=== PATIENT | male | born 1950 | race Two or more races ===

== ENCOUNTER 2020-05-31 12:09 | Inpatient (IN) | payer MEDICARE, MEDICAID ==
[~2020-05-31] VITALS: Ht 160 cm; Wt 82.0 kg
[2020-05-31] MEDS ORDERED: SODIUM CHLORIDE 0.9% 1,000 ML IV ONE ×2 (14:00→17:15)
[2020-05-31 14:57] LABS: Basophils # (auto) 0.1 10 ^3/uL (0-0.2); Basophils % (auto) 0.7 % (0.0-2.0); Eosinophils # (auto) 0.1 10 ^3/uL (0-0.8); Eosinophils % (auto) 0.7 % (0.0-7.0); Hematocrit 36.1 % (41.0-53.0); Hemoglobin 11.7 g/dL (13.5-17.5); Lymphocytes # (auto) 1.2 10 ^3/uL (0.4-5.4); Lymphocytes % (auto) 12.7 % (10.0-50.0); Mean Corpuscular Hemoglobin 31.1 pg (28.0-32.0); Mean Corpuscular Hgb Conc. 32.3 g/dL (32.0-36.0); Mean Corpuscular Volume 96.2 fL (80.0-100.0); Monocytes # (auto) 0.8 10 ^3/uL (0-1.3); Monocytes % (auto) 8.3 % (0.0-12.0); Neutrophils # (auto) 7.4 10 ^3/uL (1.6-8.6); Neutrophils % (auto) 77.6 % (37.0-80.0); Nucleated Red Blood Cells % 0.1 %; Platelet Count (auto) 396 10^3/uL (140-450); Red Blood Cells 3.75 10^6/uL (4.5-5.90); Red Cell Distribution Width 13.4 % (11.8-14.3); White Blood Cell 9.6 10^3/uL (4.4-10.8)
[2020-05-31 15:14] LABS: Alanine Aminotransferase 16 U/L (16-61); Albumin 3.1 g/dL (3.4-5.0); Anion Gap 6 (5-15); Blood Urea Nitrogen 20 mg/dL (7-18); Calcium 8.5 mg/dL (8.5-10.1); Carbon Dioxide 23 mmol/L (21-32); Chloride 110 mmol/L (98-107); Glucose 83 mg/dL (74-106); Potassium 4.1 mmol/L (3.5-5.1); Sodium 139 mmol/L (136-145)
[2020-05-31 15:22] LABS: Alkaline Phosphatase 75 U/L (45-117); Aspartate Aminotransferase 8 U/L (15-37); Bilirubin, Total 0.4 mg/dL (0.2-1.0); GFR African American 112 mL/min; GFR Non-African American 92 mL/min; Total Protein 7.1 g/dL (6.4-8.2)
[2020-05-31 15:26] LABS: Urine Bacteria NONE SEEN /hpf (None Seen); Urine Blood 2+ /uL (Negative); Urine Mucus FEW (None Seen); Urine Specific Gravity 1.021 (1.001-1.035); Urine WBC 11 /hpf (0 - 3)
[2020-05-31] MEDS ORDERED: VANCOMYCIN 1GM/250ML 250 ML IV ONE (17:15)
[2020-05-31] MEDS ORDERED: metroNIDAZOLE 500MG/100ML 100 ML IV ONE (17:15)
[2020-05-31] MEDS ORDERED: NITROGLYCERIN 0.4 MG SL TAB SL PRN (17:15)
[2020-05-31] MEDS ORDERED: MORPHINE SULF INJ 2 MG/ML SYRINGE 1ML IV PRN (17:15)
[2020-05-31 21:30] VITALS: BP 115/63
--- NOTE | 2020-05-31 22:30 | NUR ---
PATIENT BROUGHT TO UNIT VIA WHEELCHAIR FROM ER PATIENT AOX4, HAS ALL BELONGINGS WITH HIM AND A ALVARADO. NO COMPLAINTS OF PAIN OR SOB. NO S/S OR DISTRESS. YOHANA BAIRD TRANSLATED TO ASK PATIENT ABOUT PAIN AND COMFORT. PATIENT IS LAYING SUPINE IN BED W/ HOB AT 30 DEGREES, BED LOCKED IN LOWEST POSITION AND CALL LIGHT WITHIN REACH. WILL CONTINUE TO MONITOR PATIENT.
[2020-05-31] MEDS: PIPERACILLIN-TAZOB 3.375GM 100 ML IV SCH (22:34)
[2020-06-01] MEDS: PIPERACILLIN-TAZOB 3.375GM 100 ML IV SCH ×5 (00:14→23:11)
--- NOTE | 2020-06-01 00:45 | NUR ---
PATIENT COMPLAINS OF PAIN IN BLADDER AREA PATIENT WAS GIVEN PAIN MEDICATION PRESCRIBED. WILL CONTINUE TO MONITOR PAIN LEVEL.
[2020-06-01] MEDS: HYDROcodone-ACET 10/325MG TAB PO PRN (00:47)
[2020-06-01] MEDS ORDERED: ENAL2.5T7 PO (00:59)
[2020-06-01] MEDS ORDERED: CIPR500T4 PO (01:01)
[2020-06-01] MEDS ORDERED: TAMS1CAP25 PO (01:19)
[2020-06-01] MEDS ORDERED: AMLO5TAB15 PO (01:19)
[2020-06-01] MEDS ORDERED: ENAL20TA93 PO (01:19)
[2020-06-01] MEDS ORDERED: PHEN-1143 PO (01:19)
[2020-06-01 05:00] VITALS: BP 104/56
[2020-06-01 05:55] LABS: Basophils # (auto) 0 10 ^3/uL (0-0.2); Basophils % (auto) 0.6 % (0.0-2.0); Eosinophils # (auto) 0.2 10 ^3/uL (0-0.8); Hematocrit 35.4 % (41.0-53.0); Hemoglobin 11.9 g/dL (13.5-17.5); Lymphocytes # (auto) 1.2 10 ^3/uL (0.4-5.4); Lymphocytes % (auto) 15.2 % (10.0-50.0); Mean Corpuscular Hemoglobin 32.1 pg (28.0-32.0); Mean Corpuscular Hgb Conc. 33.5 g/dL (32.0-36.0); Mean Corpuscular Volume 95.6 fL (80.0-100.0); Monocytes # (auto) 0.6 10 ^3/uL (0-1.3); Monocytes % (auto) 7.8 % (0.0-12.0); Neutrophils % (auto) 74.4 % (37.0-80.0); Platelet Count (auto) 396 10^3/uL (140-450); Red Cell Distribution Width 13.4 % (11.8-14.3)
[2020-06-01 06:14] LABS: Potassium 3.8 mmol/L (3.5-5.1)
--- NOTE | 2020-06-01 07:00 | NUR ---
ENDORSED PATIENT CARE TO MORNING SHIFT RN.
[2020-06-01] MEDS: SODIUM CHLORIDE 0.9% 1,000 ML IV SCH ×2 (07:31→21:30)
[2020-06-01 09:02] VITALS: BP 113/64
[2020-06-01] MEDS ORDERED: IOTHALAMATE MEGLUMINE INJ 250ML BOT UR ONE (09:08)
[2020-06-01] MEDS: AZITHROMYCIN 500MG/ 250ML 250 ML IV SCH (12:27)
[2020-06-01 13:00] VITALS: BP 110/59
[2020-06-01 17:48] VITALS: BP 111/63
[2020-06-01 22:00] VITALS: BP 122/67
[2020-06-02] MEDS: HYDROcodone-ACET 10/325MG TAB PO PRN ×3 (01:11→22:45)
[2020-06-02 05:00] VITALS: BP 113/52
[2020-06-02 05:54] LABS: Basophils # (auto) 0 10 ^3/uL (0-0.2); Basophils % (auto) 0.4 % (0.0-2.0); Eosinophils # (auto) 0.1 10 ^3/uL (0-0.8); Eosinophils % (auto) 1.6 % (0.0-7.0); Hematocrit 35.8 % (41.0-53.0); Lymphocytes # (auto) 1.3 10 ^3/uL (0.4-5.4); Lymphocytes % (auto) 14.4 % (10.0-50.0); Mean Corpuscular Hgb Conc. 33.5 g/dL (32.0-36.0); Mean Corpuscular Volume 95.5 fL (80.0-100.0); Monocytes # (auto) 0.8 10 ^3/uL (0-1.3); Monocytes % (auto) 8.8 % (0.0-12.0); Neutrophils # (auto) 6.5 10 ^3/uL (1.6-8.6); Neutrophils % (auto) 74.8 % (37.0-80.0); Nucleated Red Blood Cells % 0.1 %; Platelet Count (auto) 428 10^3/uL (140-450); Red Blood Cells 3.74 10^6/uL (4.5-5.90); Red Cell Distribution Width 13.4 % (11.8-14.3); White Blood Cell 8.7 10^3/uL (4.4-10.8)
[2020-06-02 06:07] LABS: Partial Thromboplastin Time 29.5 sec (23.64-32.05)
[2020-06-02 06:09] LABS: Calcium 8.4 mg/dL (8.5-10.1); Potassium 3.9 mmol/L (3.5-5.1)
[2020-06-02 06:13] LABS: BUN/Creatinine Ratio 18.6
[2020-06-02] MEDS: PIPERACILLIN-TAZOB 3.375GM 100 ML IV SCH ×4 (06:51→17:29)
[2020-06-02] MEDS: AZITHROMYCIN 500MG/ 250ML 250 ML IV SCH (09:06)
[2020-06-02] MEDS: SODIUM CHLORIDE 0.9% 1,000 ML IV SCH ×2 (09:07→17:30)
[2020-06-02] MEDS ORDERED: ceFAZolin 1GM/50ML 50 ML IV ONE (09:58)
[2020-06-02] MEDS ORDERED: SUCCINYLCHOLINE CHLORIDE 20 MG/ML 10ML VIAL IV ONE (10:16)
[2020-06-02] MEDS ORDERED: LIDOCAINE 1% (LOCAL ANESTH.) PF 5ml SDV ONE (10:16)
[2020-06-02] MEDS ORDERED: MIDAZOLAM HCL 1MG/1ML-2 ML VIAL ONE (10:22)
[2020-06-02] MEDS ORDERED: METOCLOPRAMIDE HCL 5MG/ml INJ 2ml VIAL ONE (10:25)
[2020-06-02] MEDS ORDERED: ETOMIDATE (2MG/ML) 20ML VIAL IV ONE (10:25)
[2020-06-02] MEDS ORDERED: ROCURONIUM 10MG/ML 10ML VIAL IV ONE (10:29)
[2020-06-02] MEDS ORDERED: fentaNYL CITRATE 100 MCG/2 ML VL ONE (10:36)
[2020-06-02] MEDS ORDERED: HYDROmorphone HCL 2 MG/ML VL IV PRN ×2 (10:45)
[2020-06-02] MEDS ORDERED: ONDANSETRON HCL 4 MG/2 ML VIAL IV PRN (10:45)
[2020-06-02] MEDS ORDERED: GLYCOPYRROLATE 0.2 MG/ML 1ML VIAL ONE (11:06)
[2020-06-02] MEDS ORDERED: NEOSTIGMINE 1 MG/ML INJ (10mg/10ML VIAL) ONE (11:06)
--- NOTE | 2020-06-02 13:47 | NUR ---
ss consult Per consult patient wants advanced directive information. Patient has been provided with advanced directive. Addendum: 06/02/20 at 1352 by Nataliia Scott Amended: Links added.
--- NOTE | 2020-06-02 14:00 | NUR ---
PAGED DR ZAPATA FOR ORDERS REGARDING CONTINUOUS BLADDER IRRIGATION AND PARAMETERS FOR DISCONTINUATION.
[2020-06-02 17:00] VITALS: BP 99/49
--- NOTE | 2020-06-02 19:00 | NUR ---
NO COMMUNICATION RECEIVED FROM DR ZAPATA REGARDING CONTINUOUS BLADDER IRRIGATION PARAMETERS. PASSED ON TO RELIEVING NURSE.
[2020-06-02 22:00] VITALS: BP 115/60
[2020-06-03] MEDS: PIPERACILLIN-TAZOB 3.375GM 100 ML IV SCH ×3 (01:09→12:00)
--- NOTE | 2020-06-03 01:29 | NUR ---
PT ABLE TO REPOSITION SELF W/O ASSISTANCE. DENIES PAIN AT THIS TIME.
[2020-06-03 05:17] LABS: Basophils # (auto) 0.1 10 ^3/uL (0-0.2); Basophils % (auto) 0.6 % (0.0-2.0); Eosinophils # (auto) 0.3 10 ^3/uL (0-0.8); Eosinophils % (auto) 2.8 % (0.0-7.0); Hematocrit 35.7 % (41.0-53.0); Hemoglobin 11.8 g/dL (13.5-17.5); Lymphocytes # (auto) 1.4 10 ^3/uL (0.4-5.4); Lymphocytes % (auto) 15.5 % (10.0-50.0); Mean Corpuscular Hemoglobin 31.5 pg (28.0-32.0); Mean Corpuscular Hgb Conc. 32.9 g/dL (32.0-36.0); Mean Corpuscular Volume 95.6 fL (80.0-100.0); Monocytes # (auto) 0.7 10 ^3/uL (0-1.3); Monocytes % (auto) 7.9 % (0.0-12.0); Neutrophils # (auto) 6.6 10 ^3/uL (1.6-8.6); Neutrophils % (auto) 73.2 % (37.0-80.0); Platelet Count (auto) 428 10^3/uL (140-450); Red Blood Cells 3.73 10^6/uL (4.5-5.90); Red Cell Distribution Width 13.3 % (11.8-14.3); White Blood Cell 9.1 10^3/uL (4.4-10.8)
[2020-06-03 05:38] LABS: Potassium 3.9 mmol/L (3.5-5.1)
[2020-06-03 05:47] LABS: BUN/Creatinine Ratio 20.8
[2020-06-03 08:00] VITALS: BP 112/59
[2020-06-03 09:00] VITALS: BP 112/59
[2020-06-03] MEDS: AZITHROMYCIN 500MG/ 250ML 250 ML IV SCH (09:23)
--- NOTE | 2020-06-03 10:00 | NUR ---
PAGED DR ZAPATA IN REGARDS TO PARAMETERS TO DISCONTINUE CONTINUOUS BLADDER IRRIGATION AND IN REGARDS TO DISCHARGE CLEARANCE
[2020-06-03] MEDS ORDERED: SODIUM CHLORIDE 0.9% 1,000 ML IV SCH (12:15)
[2020-06-03 13:00] VITALS: BP 123/65
--- NOTE | 2020-06-03 15:39 | NUR ---
RECEIVED VERBAL CLEARANCE FOR DISCHARGE FROM DR ZAPATA OF SURGERY
[2020-06-03 16:55] VITALS: BP 128/52
--- NOTE | 2020-06-03 17:23 | NUR ---
PATIENT DISCHARGING HOME WITH FAMILY AND ALVARADO CATHETER WITH LEG BAG. PATIENT NON-TELEMETRY. ALL IV ACCESS DISCONTINUED. ALL DISCHARGE INSTRUCTIONS GIVEN. ALL DISCHARGE PAPERWORK SIGNED.
== END 2020-06-03 17:15 | disposition home or self-care (01) | DRG 713 ==
LOC: ER 12:09 → OVERFLOW 12:10 → WEST WING 22:51
PROVIDERS: ADMIT Internal Medicine; ATTEND Internal Medicine
PROC: 0TJB8ZZ Inspection of Bladder, Via Natural or Artificial Opening Endoscopic (ICD-10-PCS; 2020-06-02)
PROC: 0VT08ZZ Resection of Prostate, Via Natural or Artificial Opening Endoscopic (ICD-10-PCS; principal; 2020-06-02 10:21)
DX: N40.1 Benign prostatic hyperplasia with lower urinary tract symptoms (principal); K57.32 Diverticulitis of large intestine without perforation or abscess without bleeding; N39.0 Urinary tract infection, site not specified; K63.2 Fistula of intestine; R33.8 Other retention of urine; Z11.59 Encounter for screening for other viral diseases
CPT/HCPCS: 36415; 71045; 74176; 74430; 80048; 80053; 81001; 83605; 84484; 85025; 85610; 85730; 87040; 87086; 93005; 96361; 96365; 96366; 96367; G0378; J0330; J0690; J2250; J2543; J3490

== ENCOUNTER → 2020-09-16 | Outpatient (CLI) | payer OTHER, MEDICAID ==
[~2020-09-16] MED LIST: AMLO5TAB15 PO; CIPR500T4 PO; ENAL20TA93 PO; PHEN-1143 PO; TAMS1CAP25 PO
== END | disposition home or self-care (01) ==
LOC: LAB 09:21
PROVIDERS: ATTEND Urology
DX: N20.0 Calculus of kidney (principal); N39.0 Urinary tract infection, site not specified
CPT/HCPCS: 82360; 87086

== ENCOUNTER 2020-09-21 20:16 | Inpatient (IN) | payer OTHER, MEDICAID ==
[~2020-09-21] VITALS: Ht 160 cm; Wt 77.6 kg
[~2020-09-21 20:16] MED LIST changes: +AMLO-489 PO; -AMLO5TAB15 PO
[2020-09-21 23:06] LABS: Basophils # (auto) 0.1 10 ^3/uL (0-0.2); Eosinophils # (auto) 0.3 10 ^3/uL (0-0.8); Lymphocytes # (auto) 1.5 10 ^3/uL (0.4-5.4); Monocytes # (auto) 0.8 10 ^3/uL (0-1.3); Neutrophils # (auto) 3.2 10 ^3/uL (1.6-8.6); White Blood Cell 5.8 10^3/uL (4.4-10.8)
[2020-09-21 23:08] LABS: Basophils % (auto) 1.1 % (0.0-2.0); Eosinophils % (auto) 4.7 % (0.0-7.0); Hematocrit 33.1 % (41.0-53.0); Hemoglobin 11.3 g/dL (13.5-17.5); Lymphocytes % (auto) 25.7 % (10.0-50.0); Mean Corpuscular Hemoglobin 30.4 pg (28.0-32.0); Mean Corpuscular Hgb Conc. 34.1 g/dL (32.0-36.0); Mean Corpuscular Volume 89.1 fL (80.0-100.0); Monocytes % (auto) 14.2 % (0.0-12.0); Neutrophils % (auto) 54.3 % (37.0-80.0); Platelet Count (auto) 485 10^3/uL (140-450); Red Blood Cells 3.71 10^6/uL (4.5-5.90); Red Cell Distribution Width 14.2 % (11.8-14.3)
[2020-09-21 23:32] LABS: Albumin 2.9 g/dL (3.4-5.0); BUN/Creatinine Ratio 10.3; Bilirubin, Total 0.2 mg/dL (0.2-1.0); Calcium 8.2 mg/dL (8.5-10.1); Total Protein 6.6 g/dL (6.4-8.2)
[2020-09-22] MEDS ORDERED: metroNIDAZOLE 500MG/100ML 100 ML IV ONE (02:00)
[2020-09-22] MEDS ORDERED: CIPROFLOXACIN 400MG/200ML 200 ML IV ONE (02:00)
[2020-09-22] MEDS ORDERED: SODIUM CHLORIDE 0.9% 500 ML IV ONE (02:00)
[2020-09-22 03:37] LABS: Urine Bacteria MANY /hpf (None Seen); Urine Blood 2+ /uL (Negative); Urine Specific Gravity 1.015 (1.001-1.035); Urine WBC 1360 /hpf (0 - 3); Urine WBC Clumps PRESENT /hpf (None Seen)
[2020-09-22] MEDS ORDERED: NITROGLYCERIN 0.4 MG SL TAB SL PRN (05:45)
[2020-09-22] MEDS ORDERED: MORPHINE SULF INJ 2 MG/ML SYRINGE 1ML IV PRN (05:45)
[2020-09-22] MEDS ORDERED: ONDANSETRON HCL 4 MG/2 ML VIAL IV PRN (05:45)
[2020-09-22] MEDS ORDERED: SODIUM CHLORIDE 0.9% 1,000 ML IV ONE (05:45)
[2020-09-22] MEDS: metroNIDAZOLE 500MG/100ML 100 ML IV SCH ×3 (06:25→20:49)
[2020-09-22] MEDS: PIPERACILLIN-TAZOB 3.375GM 100 ML IV SCH ×3 (07:30→23:00)
[2020-09-22 07:42] LABS: Basophils # (auto) 0 10 ^3/uL (0-0.2); Eosinophils # (auto) 0.2 10 ^3/uL (0-0.8); Eosinophils % (auto) 6.7 % (0.0-7.0); Hematocrit 32.8 % (41.0-53.0); Hemoglobin 10.9 g/dL (13.5-17.5); Lymphocytes % (auto) 28.5 % (10.0-50.0); Mean Corpuscular Hemoglobin 30.2 pg (28.0-32.0); Mean Corpuscular Hgb Conc. 33.3 g/dL (32.0-36.0); Mean Corpuscular Volume 90.7 fL (80.0-100.0); Monocytes # (auto) 0.5 10 ^3/uL (0-1.3); Monocytes % (auto) 14.3 % (0.0-12.0); Neutrophils # (auto) 1.8 10 ^3/uL (1.6-8.6); Neutrophils % (auto) 49.5 % (37.0-80.0); Nucleated Red Blood Cells % 0.1 %; Platelet Count (auto) 442 10^3/uL (140-450); Red Blood Cells 3.62 10^6/uL (4.5-5.90); Red Cell Distribution Width 14.4 % (11.8-14.3); White Blood Cell 3.6 10^3/uL (4.4-10.8)
[2020-09-22 08:09] LABS: Potassium 3.8 mmol/L (3.5-5.1)
[2020-09-22 08:12] LABS: INR 1.03 (0.9-1.15)
[2020-09-22 08:17] LABS: Albumin 2.6 g/dL (3.4-5.0); BUN/Creatinine Ratio 11.1; Bilirubin, Total 0.2 mg/dL (0.2-1.0); Calcium 8.1 mg/dL (8.5-10.1); Total Protein 5.9 g/dL (6.4-8.2)
[2020-09-22] MEDS: amLODIPine BESYLATE 5 MG TAB PO SCH (09:28)
[2020-09-22] MEDS: TAMSULOSIN HYDROCHLORIDE 0.4 MG CAP PO SCH (09:28)
[2020-09-22] MEDS ORDERED: ACETAMINOPHEN 325 MG TAB PO PRN (10:30)
[2020-09-22] MEDS ORDERED: LIDOCAINE 2% JELLY 11ml (GLYDO) UR ONE (11:00)
[2020-09-22] MEDS ORDERED: TPN PER PHARMACY 0 ML IV SCH (13:15)
[2020-09-22 13:24] LABS: Magnesium 1.8 mg/dL (1.6-2.6); Phosphorus 2.9 mg/dL (2.5-4.90)
[2020-09-22 13:29] LABS: Pre Albumin 12.1 mg/dL (20.0-40.0)
[2020-09-22] MEDS ORDERED: TRAM50TA2 PO (15:59)
[2020-09-22] MEDS ORDERED: INFLUENZA QUAD 2020-2021 0.5 ML SYRG IM ONE (16:00)
[2020-09-22] MEDS ORDERED: LIDOCAINE 2% JELLY 11ml (GLYDO) ONE (16:57)
[2020-09-22 17:00] VITALS: BP 137/61
[2020-09-22] MEDS ORDERED: LIDOCAINE 1% (LOCAL ANESTH.) PF 5ml SDV ID ONE (18:00)
[2020-09-22] MEDS: MORPHINE SULF INJ 2 MG/ML SYRINGE 1ML IV PRN ×2 (18:02→22:12)
[2020-09-22] MEDS ORDERED: PPN PER PHARMACY IV NR ×11 (20:00)
[2020-09-22 22:00] VITALS: BP 162/75
[2020-09-22] MEDS: SODIUM CHLOR 0.9% PF (SALINE LOCK) 10ML VIAL/SYR IV SCH (22:12)
[2020-09-22] MEDS: HYDROmorphone HCL 2 MG/ML VL IV PRN (23:42)
[2020-09-22] MEDS: InsuLIN REG 1unit/0.01ml Soln (100units/ml) SC SCH (23:48)
[2020-09-22] MEDS: ACCU-CHEK COMFORT CURVE STRIP VI SCH (23:48)
[2020-09-23] MEDS ORDERED: DEXTROSE (50%) 50ML SYRG IV SCH
[2020-09-23] MEDS: HYDROmorphone HCL 2 MG/ML VL IV PRN ×5 (03:36→22:08)
[2020-09-23 05:00] VITALS: BP 153/72
[2020-09-23] MEDS: metroNIDAZOLE 500MG/100ML 100 ML IV SCH ×3 (05:09→21:25)
[2020-09-23] MEDS: InsuLIN REG 1unit/0.01ml Soln (100units/ml) SC SCH ×3 (06:00→16:42)
[2020-09-23] MEDS: PIPERACILLIN-TAZOB 3.375GM 100 ML IV SCH ×2 (06:54→16:41)
[2020-09-23] MEDS: ACCU-CHEK COMFORT CURVE STRIP VI SCH ×3 (07:04→16:42)
[2020-09-23 07:25] LABS: Albumin 2.7 g/dL (3.4-5.0); Calcium 8.4 mg/dL (8.5-10.1); Potassium 3.6 mmol/L (3.5-5.1)
[2020-09-23 07:29] LABS: BUN/Creatinine Ratio 9.2; Bilirubin, Total 0.2 mg/dL (0.2-1.0); Phosphorus 3.7 mg/dL (2.5-4.90); Total Protein 6.2 g/dL (6.4-8.2)
[2020-09-23] MEDS: amLODIPine BESYLATE 5 MG TAB PO SCH (08:44)
[2020-09-23] MEDS: TAMSULOSIN HYDROCHLORIDE 0.4 MG CAP PO SCH (08:46)
[2020-09-23] MEDS: SODIUM CHLOR 0.9% PF (SALINE LOCK) 10ML VIAL/SYR IV SCH ×2 (08:47→22:00)
[2020-09-23 09:00] VITALS: BP 145/73
[2020-09-23] MEDS ORDERED: IOTHALAMATE MEGLUMINE INJ 250ML BOT UR ONE ×2 (10:54)
[2020-09-23 13:00] VITALS: BP 125/62
[2020-09-23 17:00] VITALS: BP 145/72
[2020-09-23] MEDS ORDERED: TPN PER PHARMACY IV NR ×10 (20:00)
[2020-09-23] MEDS: DOCUSATE SOD 100 MG CAP PO SCH (22:04)
[2020-09-24] MEDS: PIPERACILLIN-TAZOB 3.375GM 100 ML IV SCH ×4 (00:01→23:42)
[2020-09-24] MEDS: InsuLIN REG 1unit/0.01ml Soln (100units/ml) SC SCH ×5 (00:10→23:43)
[2020-09-24] MEDS: ACCU-CHEK COMFORT CURVE STRIP VI SCH ×5 (00:11→23:43)
[2020-09-24] MEDS: HYDROmorphone HCL 2 MG/ML VL IV PRN ×6 (02:22→23:03)
[2020-09-24 04:00] VITALS: BP 122/79
[2020-09-24 05:00] VITALS: BP 154/77
[2020-09-24 05:15] LABS: Eosinophils # (auto) 0.1 10 ^3/uL (0-0.8); Eosinophils % (auto) 1.3 % (0.0-7.0); Lymphocytes # (auto) 1.3 10 ^3/uL (0.4-5.4); Red Cell Distribution Width 14.5 % (11.8-14.3)
[2020-09-24 05:17] LABS: Basophils # (auto) 0 10 ^3/uL (0-0.2); Basophils % (auto) 0.5 % (0.0-2.0); Hematocrit 34.3 % (41.0-53.0); Hemoglobin 11.3 g/dL (13.5-17.5); Lymphocytes % (auto) 13.7 % (10.0-50.0); Mean Corpuscular Hemoglobin 29.8 pg (28.0-32.0); Mean Corpuscular Hgb Conc. 32.9 g/dL (32.0-36.0); Mean Corpuscular Volume 90.6 fL (80.0-100.0); Monocytes # (auto) 0.8 10 ^3/uL (0-1.3); Monocytes % (auto) 7.9 % (0.0-12.0); Neutrophils # (auto) 7.6 10 ^3/uL (1.6-8.6); Neutrophils % (auto) 76.6 % (37.0-80.0); Platelet Count (auto) 488 10^3/uL (140-450); Red Blood Cells 3.78 10^6/uL (4.5-5.90); White Blood Cell 9.9 10^3/uL (4.4-10.8)
[2020-09-24] MEDS: metroNIDAZOLE 500MG/100ML 100 ML IV SCH ×3 (05:29→22:20)
[2020-09-24 05:39] LABS: Albumin 2.4 g/dL (3.4-5.0); BUN/Creatinine Ratio 15.2; Bilirubin, Total 0.2 mg/dL (0.2-1.0); Calcium 8.3 mg/dL (8.5-10.1); Magnesium 2.1 mg/dL (1.6-2.6); Phosphorus 3.4 mg/dL (2.5-4.90); Potassium 3.9 mmol/L (3.5-5.1); Total Protein 6.1 g/dL (6.4-8.2)
[2020-09-24] MEDS ORDERED: GOLYTELY 4L KIT PO ONE (07:00)
[2020-09-24 09:00] VITALS: BP 117/61
[2020-09-24] MEDS: DOCUSATE SOD 100 MG CAP PO SCH ×2 (10:16→23:42)
[2020-09-24] MEDS: TAMSULOSIN HYDROCHLORIDE 0.4 MG CAP PO SCH (10:17)
[2020-09-24] MEDS: amLODIPine BESYLATE 5 MG TAB PO SCH (10:17)
[2020-09-24] MEDS: SODIUM CHLOR 0.9% PF (SALINE LOCK) 10ML VIAL/SYR IV SCH ×2 (11:25→22:20)
[2020-09-24 13:00] VITALS: BP 139/65
[2020-09-24 16:12] VITALS: BP 138/69
[2020-09-24] MEDS ORDERED: TPN PER PHARMACY IV NR ×11 (20:00)
[2020-09-24 22:00] VITALS: BP 148/67
[2020-09-25] MEDS: HYDROmorphone HCL 2 MG/ML VL IV PRN ×5 (03:18→20:16)
[2020-09-25 05:00] VITALS: BP 139/65
[2020-09-25] MEDS: metroNIDAZOLE 500MG/100ML 100 ML IV SCH (05:15)
[2020-09-25] MEDS: InsuLIN REG 1unit/0.01ml Soln (100units/ml) SC SCH ×4 (05:36→23:02)
[2020-09-25] MEDS: ACCU-CHEK COMFORT CURVE STRIP VI SCH ×4 (05:36→23:02)
[2020-09-25] MEDS: PIPERACILLIN-TAZOB 3.375GM 100 ML IV SCH ×3 (06:33→21:05)
[2020-09-25 07:06] LABS: Albumin 2.5 g/dL (3.4-5.0); BUN/Creatinine Ratio 18.4; Bilirubin, Total 0.3 mg/dL (0.2-1.0); Calcium 8.3 mg/dL (8.5-10.1); Phosphorus 2.7 mg/dL (2.5-4.90); Potassium 3.8 mmol/L (3.5-5.1); Total Protein 6.2 g/dL (6.4-8.2)
[2020-09-25 08:00] VITALS: BP 117/61
[2020-09-25 08:16] VITALS: BP 157/66
[2020-09-25] MEDS: SODIUM CHLOR 0.9% PF (SALINE LOCK) 10ML VIAL/SYR IV SCH ×2 (10:12→21:03)
[2020-09-25] MEDS: DOCUSATE SOD 100 MG CAP PO SCH ×2 (10:12→21:03)
[2020-09-25] MEDS: amLODIPine BESYLATE 5 MG TAB PO SCH (10:13)
[2020-09-25] MEDS: TAMSULOSIN HYDROCHLORIDE 0.4 MG CAP PO SCH (10:13)
[2020-09-25 12:24] VITALS: BP 150/70
[2020-09-25 16:15] LABS: INR 1.07 (0.9-1.15)
[2020-09-25 17:00] VITALS: BP 141/68
[2020-09-25] MEDS ORDERED: TPN PER PHARMACY IV NR ×11 (20:00)
[2020-09-25 22:00] VITALS: BP 152/75
[2020-09-26] MEDS: HYDROmorphone HCL 2 MG/ML VL IV PRN ×4 (04:05→19:30)
[2020-09-26 05:00] VITALS: BP 141/66
[2020-09-26] MEDS: ACCU-CHEK COMFORT CURVE STRIP VI SCH ×3 (06:00→13:36)
[2020-09-26 06:34] LABS: Potassium 3.8 mmol/L (3.5-5.1)
[2020-09-26] MEDS: PIPERACILLIN-TAZOB 3.375GM 100 ML IV SCH ×2 (06:43→16:02)
[2020-09-26] MEDS: InsuLIN REG 1unit/0.01ml Soln (100units/ml) SC SCH ×3 (06:44→13:33)
[2020-09-26 06:59] LABS: Albumin 2.6 g/dL (3.4-5.0); BUN/Creatinine Ratio 23.3; Bilirubin, Total 0.2 mg/dL (0.2-1.0); Calcium 8.2 mg/dL (8.5-10.1); Phosphorus 3.1 mg/dL (2.5-4.90); Total Protein 6.4 g/dL (6.4-8.2)
[2020-09-26 09:00] VITALS: BP 193/84
[2020-09-26] MEDS: SODIUM CHLOR 0.9% PF (SALINE LOCK) 10ML VIAL/SYR IV SCH ×2 (09:00→22:00)
[2020-09-26] MEDS: amLODIPine BESYLATE 5 MG TAB PO SCH (10:00)
[2020-09-26] MEDS: TAMSULOSIN HYDROCHLORIDE 0.4 MG CAP PO SCH (10:00)
[2020-09-26] MEDS: DOCUSATE SOD 100 MG CAP PO SCH ×2 (10:00→22:00)
[2020-09-26] MEDS ORDERED: MIDAZOLAM HCL 1MG/1ML-2 ML VIAL ONE (10:03)
[2020-09-26] MEDS ORDERED: ONDANSETRON HCL 4 MG/2 ML VIAL ONE (10:03)
[2020-09-26] MEDS ORDERED: GLYCOPYRROLATE 0.2 MG/ML 1ML VIAL ONE ×2 (10:03→11:02)
[2020-09-26] MEDS ORDERED: LIDOCAINE 2% (LOCAL ANESTH.) PF 5ml SDV ONE (10:03)
[2020-09-26] MEDS ORDERED: HYDROmorphone HCL 2 MG/ML VL ONE ×2 (10:03→13:11)
[2020-09-26] MEDS ORDERED: DexAMETHasone SOD PHOS 10MG/1ML VIAL INJ ONE (10:03)
[2020-09-26] MEDS ORDERED: fentaNYL CITRATE 100 MCG/2 ML VL ONE ×2 (10:03→12:28)
[2020-09-26] MEDS ORDERED: ROCURONIUM 10MG/ML 10ML VIAL IV ONE (10:04)
[2020-09-26] MEDS ORDERED: metroNIDAZOLE 500MG/100ML 100 ML IV ONE (10:10)
[2020-09-26] MEDS ORDERED: fentaNYL CITRATE 5 ML ONE (10:33)
[2020-09-26] MEDS ORDERED: NEOSTIGMINE 1 MG/ML INJ (10mg/10ML VIAL) ONE (11:02)
[2020-09-26] MEDS ORDERED: METHYLENE BLUE 0.5% 5MG/ML 10ml AMP IV ONE (11:15)
[2020-09-26] MEDS ORDERED: ACCU-CHEK COMFORT CURVE STRIP VI ONE (13:30)
[2020-09-26] MEDS ORDERED: ONDANSETRON HCL 4 MG/2 ML VIAL IV PRN (13:30)
[2020-09-26] MEDS ORDERED: HYDROmorphone HCL 2 MG/ML VL IV PRN (13:30)
[2020-09-26 16:04] LABS: Hematocrit 31.5 % (41.0-53.0); Hemoglobin 10.2 g/dL (13.5-17.5); Mean Corpuscular Hemoglobin 29.4 pg (28.0-32.0); Mean Corpuscular Hgb Conc. 32.5 g/dL (32.0-36.0); Mean Corpuscular Volume 90.7 fL (80.0-100.0); Platelet Count (auto) 387 10^3/uL (140-450); Red Blood Cells 3.48 10^6/uL (4.5-5.90); Red Cell Distribution Width 14.8 % (11.8-14.3); White Blood Cell 29.9 10^3/uL (4.4-10.8)
[2020-09-26 16:11] LABS: Albumin 2.4 g/dL (3.4-5.0); BUN/Creatinine Ratio 23.1; Calcium 7.9 mg/dL (8.5-10.1); Potassium 4.1 mmol/L (3.5-5.1)
[2020-09-26 16:12] LABS: Band Neutrophils % (manual) 0; Basophils % (manual) 0 (0.0-2.0); Blast Cells 0; Eosinophils % (manual) 0 (0-7); Metamyelocytes % 0; Myelocytes % 0; Promyelocytes % 0; Reactive Lymphocytes 0
[2020-09-26 16:14] LABS: Bilirubin, Total 0.4 mg/dL (0.2-1.0); Total Protein 5.6 g/dL (6.4-8.2)
[2020-09-26 17:20] LABS: Lymphocytes % (manual) 4 (10.0-50.0); Monocytes % (manual) 3 (0-12)
[2020-09-26 20:00] VITALS: BP 149/78
[2020-09-26] MEDS ORDERED: TPN PER PHARMACY IV NR ×11 (20:00)
[2020-09-26 22:00] VITALS: BP 123/60
[2020-09-26] MEDS: MEROPENEM 1GM IVPB 100 ML IV SCH (22:00)
[2020-09-27] MEDS: InsuLIN REG 1unit/0.01ml Soln (100units/ml) SC SCH ×4 (01:00→17:17)
[2020-09-27] MEDS: HYDROmorphone HCL 2 MG/ML VL IV PRN ×6 (02:11→22:34)
[2020-09-27 02:54] VITALS: BP 123/60
[2020-09-27 05:00] VITALS: BP 123/50
[2020-09-27] MEDS: ACCU-CHEK COMFORT CURVE STRIP VI SCH ×4 (06:00→17:16)
[2020-09-27] MEDS: MEROPENEM 1GM IVPB 100 ML IV SCH ×3 (06:25→22:39)
[2020-09-27 07:14] LABS: Potassium 4.2 mmol/L (3.5-5.1)
[2020-09-27 07:27] LABS: Albumin 2.2 g/dL (3.4-5.0); BUN/Creatinine Ratio 31.1; Bilirubin, Total 0.3 mg/dL (0.2-1.0); Calcium 7.9 mg/dL (8.5-10.1); Magnesium 1.8 mg/dL (1.6-2.6); Phosphorus 2.6 mg/dL (2.5-4.90); Total Protein 5.4 g/dL (6.4-8.2)
[2020-09-27 09:00] VITALS: BP 134/55
[2020-09-27 09:57] LABS: Basophils # (auto) 0 10 ^3/uL (0-0.2); Basophils % (auto) 0.1 % (0.0-2.0); Eosinophils # (auto) 0 10 ^3/uL (0-0.8); Hematocrit 27.9 % (41.0-53.0); Hemoglobin 9.3 g/dL (13.5-17.5); Lymphocytes # (auto) 1.5 10 ^3/uL (0.4-5.4); Lymphocytes % (auto) 7.7 % (10.0-50.0); Mean Corpuscular Hemoglobin 30.1 pg (28.0-32.0); Mean Corpuscular Hgb Conc. 33.3 g/dL (32.0-36.0); Mean Corpuscular Volume 90.6 fL (80.0-100.0); Monocytes # (auto) 1.2 10 ^3/uL (0-1.3); Monocytes % (auto) 6.4 % (0.0-12.0); Neutrophils # (auto) 16.3 10 ^3/uL (1.6-8.6); Neutrophils % (auto) 85.8 % (37.0-80.0); Platelet Count (auto) 360 10^3/uL (140-450); Red Blood Cells 3.08 10^6/uL (4.5-5.90); Red Cell Distribution Width 14.9 % (11.8-14.3)
[2020-09-27] MEDS: DOCUSATE SOD 100 MG CAP PO SCH ×2 (09:58→22:00)
[2020-09-27] MEDS: amLODIPine BESYLATE 5 MG TAB PO SCH (10:00)
[2020-09-27] MEDS: SODIUM CHLOR 0.9% PF (SALINE LOCK) 10ML VIAL/SYR IV SCH ×2 (10:00→22:00)
[2020-09-27] MEDS: TAMSULOSIN HYDROCHLORIDE 0.4 MG CAP PO SCH (10:00)
[2020-09-27 13:00] VITALS: BP 148/78
[2020-09-27 16:20] VITALS: BP 149/70
[2020-09-27] MEDS ORDERED: MICAFUNGIN SODIUM 100 MG in SODIUM CHL 0.9% 100 ML IV ONE (19:30)
[2020-09-27] MEDS ORDERED: TPN PER PHARMACY IV NR ×12 (20:00)
[2020-09-27 22:00] VITALS: BP 151/67
[2020-09-28] MEDS: HYDROmorphone HCL 2 MG/ML VL IV PRN ×6 (02:27→23:51)
[2020-09-28 05:00] VITALS: BP 145/70
[2020-09-28] MEDS: InsuLIN REG 1unit/0.01ml Soln (100units/ml) SC SCH ×5 (06:00→23:45)
[2020-09-28] MEDS: MEROPENEM 1GM IVPB 100 ML IV SCH ×3 (06:11→22:49)
[2020-09-28] MEDS: ACCU-CHEK COMFORT CURVE STRIP VI SCH ×5 (06:11→23:44)
[2020-09-28 07:41] LABS: Albumin 2.2 g/dL (3.4-5.0); Magnesium 1.9 mg/dL (1.6-2.6); Potassium 3.9 mmol/L (3.5-5.1)
[2020-09-28 07:49] LABS: BUN/Creatinine Ratio 29.3; Bilirubin, Total 0.3 mg/dL (0.2-1.0); Phosphorus 2.6 mg/dL (2.5-4.90); Total Protein 5.7 g/dL (6.4-8.2)
[2020-09-28 08:24] LABS: Basophils # (auto) 0.1 10 ^3/uL (0-0.2); Basophils % (auto) 0.4 % (0.0-2.0); Eosinophils # (auto) 0.3 10 ^3/uL (0-0.8); Eosinophils % (auto) 1.8 % (0.0-7.0); Hematocrit 27.4 % (41.0-53.0); Lymphocytes # (auto) 1.7 10 ^3/uL (0.4-5.4); Mean Corpuscular Hgb Conc. 32.9 g/dL (32.0-36.0); Mean Corpuscular Volume 91.2 fL (80.0-100.0); Monocytes # (auto) 1.1 10 ^3/uL (0-1.3); Monocytes % (auto) 7.4 % (0.0-12.0); Neutrophils # (auto) 11.2 10 ^3/uL (1.6-8.6); Neutrophils % (auto) 78.4 % (37.0-80.0); Platelet Count (auto) 357 10^3/uL (140-450); Red Cell Distribution Width 14.8 % (11.8-14.3); White Blood Cell 14.3 10^3/uL (4.4-10.8)
[2020-09-28 09:21] VITALS: BP 150/62
[2020-09-28] MEDS: TAMSULOSIN HYDROCHLORIDE 0.4 MG CAP PO SCH (09:41)
[2020-09-28] MEDS: DOCUSATE SOD 100 MG CAP PO SCH ×2 (09:41→21:25)
[2020-09-28] MEDS: amLODIPine BESYLATE 5 MG TAB PO SCH (09:45)
[2020-09-28] MEDS: SODIUM CHLOR 0.9% PF (SALINE LOCK) 10ML VIAL/SYR IV SCH ×2 (09:51→21:25)
[2020-09-28] MEDS ORDERED: MICAFUNGIN SODIUM 100 MG in SODIUM CHL 0.9% 100 ML IV SCH (10:00)
[2020-09-28 13:00] VITALS: BP 145/71
[2020-09-28 17:00] VITALS: BP 141/70
[2020-09-28] MEDS: THROAT LOZENGES(CEPASTAT) MT PRN (17:30)
[2020-09-28] MEDS ORDERED: TPN PER PHARMACY IV NR ×13 (20:00)
[2020-09-28] MEDS: MICAFUNGIN SODIUM 100 MG in SODIUM CHL 0.9% 100 ML IV SCH (21:25)
[2020-09-28 22:00] VITALS: BP 140/57
[2020-09-29] MEDS: HYDROmorphone HCL 2 MG/ML VL IV PRN ×5 (03:51→20:15)
[2020-09-29 05:00] VITALS: BP 138/56
[2020-09-29 05:42] LABS: Basophils # (auto) 0.1 10 ^3/uL (0-0.2); Basophils % (auto) 0.8 % (0.0-2.0); Eosinophils # (auto) 0.2 10 ^3/uL (0-0.8); Eosinophils % (auto) 1.2 % (0.0-7.0); Hematocrit 28.9 % (41.0-53.0); Hemoglobin 9.2 g/dL (13.5-17.5); Lymphocytes # (auto) 1.3 10 ^3/uL (0.4-5.4); Lymphocytes % (auto) 10.1 % (10.0-50.0); Mean Corpuscular Hemoglobin 28.9 pg (28.0-32.0); Mean Corpuscular Volume 90.5 fL (80.0-100.0); Monocytes # (auto) 0.9 10 ^3/uL (0-1.3); Monocytes % (auto) 7.2 % (0.0-12.0); Neutrophils # (auto) 10.5 10 ^3/uL (1.6-8.6); Neutrophils % (auto) 80.7 % (37.0-80.0); Platelet Count (auto) 388 10^3/uL (140-450); Red Blood Cells 3.19 10^6/uL (4.5-5.90); Red Cell Distribution Width 14.7 % (11.8-14.3)
[2020-09-29] MEDS: MEROPENEM 1GM IVPB 100 ML IV SCH ×3 (05:58→21:15)
[2020-09-29] MEDS: THROAT LOZENGES(CEPASTAT) MT PRN (05:58)
[2020-09-29] MEDS: ACCU-CHEK COMFORT CURVE STRIP VI SCH (05:58)
[2020-09-29 06:01] LABS: Albumin 2.3 g/dL (3.4-5.0); Calcium 8.1 mg/dL (8.5-10.1)
[2020-09-29] MEDS: InsuLIN REG 1unit/0.01ml Soln (100units/ml) SC SCH (06:01)
[2020-09-29 06:07] LABS: BUN/Creatinine Ratio 32.2; Bilirubin, Total 0.4 mg/dL (0.2-1.0); Phosphorus 2.8 mg/dL (2.5-4.90)
[2020-09-29 08:00] VITALS: BP 134/63
[2020-09-29 09:00] VITALS: BP 134/63
[2020-09-29] MEDS: SODIUM CHLOR 0.9% PF (SALINE LOCK) 10ML VIAL/SYR IV SCH ×2 (10:12→20:15)
[2020-09-29] MEDS: DOCUSATE SOD 100 MG CAP PO SCH ×2 (10:12→21:15)
[2020-09-29] MEDS: TAMSULOSIN HYDROCHLORIDE 0.4 MG CAP PO SCH (10:13)
[2020-09-29] MEDS: amLODIPine BESYLATE 5 MG TAB PO SCH (10:13)
[2020-09-29 13:00] VITALS: BP 128/59
[2020-09-29 16:51] VITALS: BP 127/60
[2020-09-29] MEDS: MICAFUNGIN SODIUM 100 MG in SODIUM CHL 0.9% 100 ML IV SCH (20:15)
[2020-09-29 22:00] VITALS: BP 119/60
[2020-09-30] MEDS: HYDROmorphone HCL 2 MG/ML VL IV PRN ×6 (00:20→22:22)
[2020-09-30 03:55] VITALS: BP 119/60
[2020-09-30 05:00] VITALS: BP 131/57
[2020-09-30] MEDS: MEROPENEM 1GM IVPB 100 ML IV SCH ×3 (05:27→22:22)
[2020-09-30 08:30] LABS: Basophils # (auto) 0.2 10 ^3/uL (0-0.2); Basophils % (auto) 1.6 % (0.0-2.0); Eosinophils # (auto) 0.4 10 ^3/uL (0-0.8); Eosinophils % (auto) 3.5 % (0.0-7.0); Hematocrit 30.2 % (41.0-53.0); Lymphocytes # (auto) 2.2 10 ^3/uL (0.4-5.4); Mean Corpuscular Hemoglobin 29.8 pg (28.0-32.0); Mean Corpuscular Hgb Conc. 33.1 g/dL (32.0-36.0); Mean Corpuscular Volume 90.1 fL (80.0-100.0); Monocytes # (auto) 0.8 10 ^3/uL (0-1.3); Monocytes % (auto) 6.6 % (0.0-12.0); Neutrophils % (auto) 69.3 % (37.0-80.0); Platelet Count (auto) 453 10^3/uL (140-450); Red Blood Cells 3.36 10^6/uL (4.5-5.90); Red Cell Distribution Width 14.6 % (11.8-14.3); White Blood Cell 11.6 10^3/uL (4.4-10.8)
[2020-09-30 08:46] LABS: BUN/Creatinine Ratio 30.9; Calcium 8.6 mg/dL (8.5-10.1); Potassium 4.2 mmol/L (3.5-5.1)
[2020-09-30 09:00] VITALS: BP 123/60
[2020-09-30] MEDS: SODIUM CHLOR 0.9% PF (SALINE LOCK) 10ML VIAL/SYR IV SCH ×2 (09:36→21:14)
[2020-09-30] MEDS: TAMSULOSIN HYDROCHLORIDE 0.4 MG CAP PO SCH (09:36)
[2020-09-30] MEDS: DOCUSATE SOD 100 MG CAP PO SCH ×2 (09:36→21:14)
[2020-09-30] MEDS: amLODIPine BESYLATE 5 MG TAB PO SCH (09:37)
[2020-09-30 12:38] VITALS: BP 134/63
[2020-09-30 16:58] VITALS: BP 116/58
[2020-09-30] MEDS: MICAFUNGIN SODIUM 100 MG in SODIUM CHL 0.9% 100 ML IV SCH (21:14)
[2020-09-30 22:00] VITALS: BP 116/58
[2020-10-01] MEDS: HYDROmorphone HCL 2 MG/ML VL IV PRN ×5 (03:03→20:30)
[2020-10-01 05:00] VITALS: BP 131/59
[2020-10-01] MEDS: MEROPENEM 1GM IVPB 100 ML IV SCH ×3 (06:23→22:05)
[2020-10-01 06:29] LABS: Basophils # (auto) 0.1 10 ^3/uL (0-0.2); Basophils % (auto) 0.9 % (0.0-2.0); Eosinophils # (auto) 0.4 10 ^3/uL (0-0.8); Eosinophils % (auto) 4.1 % (0.0-7.0); Hematocrit 27.5 % (41.0-53.0); Hemoglobin 8.9 g/dL (13.5-17.5); Lymphocytes # (auto) 1.3 10 ^3/uL (0.4-5.4); Lymphocytes % (auto) 14.7 % (10.0-50.0); Mean Corpuscular Hemoglobin 29.4 pg (28.0-32.0); Mean Corpuscular Hgb Conc. 32.4 g/dL (32.0-36.0); Mean Corpuscular Volume 90.9 fL (80.0-100.0); Monocytes # (auto) 0.7 10 ^3/uL (0-1.3); Monocytes % (auto) 7.5 % (0.0-12.0); Neutrophils # (auto) 6.6 10 ^3/uL (1.6-8.6); Neutrophils % (auto) 72.8 % (37.0-80.0); Platelet Count (auto) 484 10^3/uL (140-450); Red Blood Cells 3.02 10^6/uL (4.5-5.90); Red Cell Distribution Width 14.5 % (11.8-14.3)
[2020-10-01 06:49] LABS: Albumin 2.3 g/dL (3.4-5.0); Calcium 8.5 mg/dL (8.5-10.1); Potassium 4.1 mmol/L (3.5-5.1)
[2020-10-01 06:54] LABS: BUN/Creatinine Ratio 32.8; Bilirubin, Total 0.3 mg/dL (0.2-1.0); Total Protein 5.7 g/dL (6.4-8.2)
[2020-10-01 09:00] VITALS: BP 136/57
[2020-10-01] MEDS: amLODIPine BESYLATE 5 MG TAB PO SCH (09:53)
[2020-10-01] MEDS: TAMSULOSIN HYDROCHLORIDE 0.4 MG CAP PO SCH (09:53)
[2020-10-01] MEDS: DOCUSATE SOD 100 MG CAP PO SCH ×2 (10:00→22:05)
[2020-10-01] MEDS: SODIUM CHLOR 0.9% PF (SALINE LOCK) 10ML VIAL/SYR IV SCH ×2 (10:00→22:05)
[2020-10-01 13:00] VITALS: BP 138/73
[2020-10-01 16:41] VITALS: BP 143/63
[2020-10-01] MEDS: MICAFUNGIN SODIUM 100 MG in SODIUM CHL 0.9% 100 ML IV SCH (21:05)
[2020-10-01 22:11] VITALS: BP 135/60
[2020-10-01 22:40] VITALS: BP 135/60
[2020-10-02] MEDS: HYDROmorphone HCL 2 MG/ML VL IV PRN ×6 (00:31→22:30)
[2020-10-02 05:24] VITALS: BP 142/68
[2020-10-02] MEDS: MEROPENEM 1GM IVPB 100 ML IV SCH ×3 (05:39→21:56)
[2020-10-02 05:56] LABS: Basophils # (auto) 0.1 10 ^3/uL (0-0.2); Basophils % (auto) 0.8 % (0.0-2.0); Hemoglobin 8.9 g/dL (13.5-17.5); Lymphocytes # (auto) 1.8 10 ^3/uL (0.4-5.4); Lymphocytes % (auto) 20.2 % (10.0-50.0); Monocytes # (auto) 0.7 10 ^3/uL (0-1.3); White Blood Cell 8.9 10^3/uL (4.4-10.8)
[2020-10-02 05:57] LABS: Eosinophils # (auto) 0.3 10 ^3/uL (0-0.8); Eosinophils % (auto) 3.7 % (0.0-7.0); Hematocrit 27.1 % (41.0-53.0); Mean Corpuscular Volume 90.9 fL (80.0-100.0); Monocytes % (auto) 8.1 % (0.0-12.0); Neutrophils % (auto) 67.2 % (37.0-80.0); Platelet Count (auto) 493 10^3/uL (140-450); Red Blood Cells 2.98 10^6/uL (4.5-5.90); Red Cell Distribution Width 14.6 % (11.8-14.3)
[2020-10-02 06:15] LABS: Albumin 2.3 g/dL (3.4-5.0); Calcium 8.4 mg/dL (8.5-10.1); Potassium 4.4 mmol/L (3.5-5.1)
[2020-10-02 06:17] LABS: BUN/Creatinine Ratio 32.8
[2020-10-02 06:20] LABS: Bilirubin, Total 0.3 mg/dL (0.2-1.0); Total Protein 6.1 g/dL (6.4-8.2)
[2020-10-02 08:00] VITALS: BP 125/58
[2020-10-02 09:00] VITALS: BP 125/58
[2020-10-02] MEDS: amLODIPine BESYLATE 5 MG TAB PO SCH (09:53)
[2020-10-02] MEDS: TAMSULOSIN HYDROCHLORIDE 0.4 MG CAP PO SCH (09:53)
[2020-10-02] MEDS: SODIUM CHLOR 0.9% PF (SALINE LOCK) 10ML VIAL/SYR IV SCH ×2 (09:54→21:01)
[2020-10-02] MEDS: DOCUSATE SOD 100 MG CAP PO SCH ×2 (09:54→21:02)
[2020-10-02 12:50] VITALS: BP 121/67
[2020-10-02] MEDS: MICAFUNGIN SODIUM 100 MG in SODIUM CHL 0.9% 100 ML IV SCH (21:01)
[2020-10-02 21:46] VITALS: BP 123/62
[2020-10-03] MEDS: HYDROmorphone HCL 2 MG/ML VL IV PRN ×3 (03:14→12:44)
[2020-10-03 05:01] VITALS: BP 119/60
[2020-10-03 05:11] VITALS: BP 129/69
[2020-10-03] MEDS: MEROPENEM 1GM IVPB 100 ML IV SCH ×2 (05:29→13:51)
[2020-10-03 06:31] LABS: Basophils # (auto) 0.1 10 ^3/uL (0-0.2); Eosinophils # (auto) 0.3 10 ^3/uL (0-0.8); Hemoglobin 9.2 g/dL (13.5-17.5); Lymphocytes # (auto) 1.3 10 ^3/uL (0.4-5.4); Monocytes # (auto) 0.7 10 ^3/uL (0-1.3); Monocytes % (auto) 7.5 % (0.0-12.0)
[2020-10-03 06:35] LABS: Basophils % (auto) 0.7 % (0.0-2.0); Eosinophils % (auto) 3.2 % (0.0-7.0); Hematocrit 28.3 % (41.0-53.0); Lymphocytes % (auto) 14.1 % (10.0-50.0); Mean Corpuscular Hemoglobin 29.5 pg (28.0-32.0); Mean Corpuscular Hgb Conc. 32.6 g/dL (32.0-36.0); Mean Corpuscular Volume 90.5 fL (80.0-100.0); Neutrophils # (auto) 6.6 10 ^3/uL (1.6-8.6); Neutrophils % (auto) 74.5 % (37.0-80.0); Nucleated Red Blood Cells % 0.1 %; Platelet Count (auto) 483 10^3/uL (140-450); Red Blood Cells 3.13 10^6/uL (4.5-5.90); Red Cell Distribution Width 14.8 % (11.8-14.3); White Blood Cell 8.9 10^3/uL (4.4-10.8)
[2020-10-03 06:53] LABS: Albumin 2.5 g/dL (3.4-5.0); Calcium 8.9 mg/dL (8.5-10.1); Potassium 4.2 mmol/L (3.5-5.1)
[2020-10-03 06:58] LABS: BUN/Creatinine Ratio 33.3; Bilirubin, Total 0.3 mg/dL (0.2-1.0); Total Protein 6.3 g/dL (6.4-8.2)
[2020-10-03 09:00] VITALS: BP 123/63
[2020-10-03] MEDS: TAMSULOSIN HYDROCHLORIDE 0.4 MG CAP PO SCH (09:36)
[2020-10-03] MEDS: amLODIPine BESYLATE 5 MG TAB PO SCH (09:36)
[2020-10-03] MEDS: DOCUSATE SOD 100 MG CAP PO SCH (09:36)
[2020-10-03] MEDS: SODIUM CHLOR 0.9% PF (SALINE LOCK) 10ML VIAL/SYR IV SCH (09:37)
[2020-10-03] MEDS ORDERED: IOTHALAMATE MEGLUMINE INJ 250ML BOT UR ONE (11:22)
[2020-10-03 13:00] VITALS: BP 130/65
[2020-10-03 14:32] VITALS: BP 123/63
[2020-10-03 17:27] VITALS: BP 146/71
== END 2020-10-03 16:46 | disposition home health service (06) | DRG 329 ==
LOC: EDBD 20:16 → ER 20:18 → INTOOBSV 20:19 → OBSVTOIN 20:19 → OVERFLOW 20:19 → WEST WING 09-22 15:19 → TELE-WESTW 09-26 18:18
PROVIDERS: ADMIT Internal Medicine; ATTEND Internal Medicine
PROC: 02HV33Z Insertion of Infusion Device into Superior Vena Cava, Percutaneous Approach (ICD-10-PCS; 2020-09-22)
PROC: 0D1M0Z4 Bypass Descending Colon to Cutaneous, Open Approach (ICD-10-PCS; 2020-09-26)
PROC: 5A09357 Assistance with Respiratory Ventilation, Less than 24 Consecutive Hours, Continuous Positive Airway Pressure (ICD-10-PCS; 2020-09-26)
PROC: 0TQB0ZZ Repair Bladder, Open Approach (ICD-10-PCS; 2020-09-26)
PROC: 0DTG0ZZ Resection of Left Large Intestine, Open Approach (ICD-10-PCS; principal; 2020-09-26 10:14)
PROC: 5A09357 Assistance with Respiratory Ventilation, Less than 24 Consecutive Hours, Continuous Positive Airway Pressure (ICD-10-PCS; 2020-09-28)
PROC: 5A09357 Assistance with Respiratory Ventilation, Less than 24 Consecutive Hours, Continuous Positive Airway Pressure (ICD-10-PCS; 2020-09-29)
PROC: 5A09357 Assistance with Respiratory Ventilation, Less than 24 Consecutive Hours, Continuous Positive Airway Pressure (ICD-10-PCS; 2020-09-30)
PROC: 5A09357 Assistance with Respiratory Ventilation, Less than 24 Consecutive Hours, Continuous Positive Airway Pressure (ICD-10-PCS; 2020-10-01)
PROC: 5A09357 Assistance with Respiratory Ventilation, Less than 24 Consecutive Hours, Continuous Positive Airway Pressure (ICD-10-PCS; 2020-10-02)
PROC: BT101ZZ Fluoroscopy of Bladder using Low Osmolar Contrast (ICD-10-PCS; 2020-10-03)
DX: K57.20 Diverticulitis of large intestine with perforation and abscess without bleeding (principal); K65.1 Peritoneal abscess; N32.1 Vesicointestinal fistula; N39.0 Urinary tract infection, site not specified; E44.0 Moderate protein-calorie malnutrition; Z16.12 Extended spectrum beta lactamase (ESBL) resistance; Z20.828 Contact with and (suspected) exposure to other viral communicable diseases; I10 Essential (primary) hypertension; N40.0 Benign prostatic hyperplasia without lower urinary tract symptoms; E66.01 Morbid (severe) obesity due to excess calories; M17.12 Unilateral primary osteoarthritis, left knee; B96.20 Unspecified Escherichia coli [E. coli] as the cause of diseases classified elsewhere; Z87.442 Personal history of urinary calculi; Z79.899 Other long term (current) drug therapy; Z90.79 Acquired absence of other genital organ(s); Z23 Encounter for immunization; Z79.4 Long term (current) use of insulin; Z68.32 Body mass index [BMI] 32.0-32.9, adult
CPT/HCPCS: 36415; 36569; 71045; 72192; 74176; 74430; 80048; 80053; 81001; 82040; 82150; 82962; 83605; 83690; 83735; 83880; 84100; 84478; 85007; 85025; 85027; 85610; 86850; 86900; 86901; 87040; 87086; 87088; 87186; 90471; 93005; 94660; 96365; 96366; 96367; 96368; 96372; 96375; 96376; 97110; 97116; 97163; 97530; G0378; J1100; J1815; J2001; J2185; J2248; J2250; J2405; J2543; J3490; J7131

== ENCOUNTER 2022-12-06 12:27 | Emergency (ER) | payer OTHER, MEDICAID ==
[~2022-12-06] VITALS: Ht 160 cm; Wt 80.0 kg
[~2022-12-06 12:27] MED LIST changes: -CIPR500T4 PO; -PHEN-1143 PO; +PHEN200T16 PO; +TRAM50TA2 PO
[2022-12-06 13:06] LABS: Basophils # (auto) 0.1 10 ^3/uL (0-0.2); Basophils % (auto) 0.9 % (0.0-2.0); Eosinophils # (auto) 0.1 10 ^3/uL (0-0.8); Eosinophils % (auto) 0.7 % (0.0-7.0); Hemoglobin 14.7 g/dL (13.5-17.5); Lymphocytes # (auto) 1.8 10 ^3/uL (0.4-5.4); Lymphocytes % (auto) 20.6 % (10.0-50.0); Mean Corpuscular Hemoglobin 30.7 pg (28.0-32.0); Mean Corpuscular Hgb Conc. 32.8 g/dL (32.0-36.0); Mean Corpuscular Volume 93.8 fL (80.0-100.0); Monocytes # (auto) 0.5 10 ^3/uL (0-1.3); Monocytes % (auto) 5.9 % (0.0-12.0); Neutrophils # (auto) 6.2 10 ^3/uL (1.6-8.6); Neutrophils % (auto) 71.9 % (37.0-80.0); Nucleated Red Blood Cells % 0.1 %; Red Cell Distribution Width 13.8 % (11.8-14.3); White Blood Cell 8.6 10^3/uL (4.4-10.8)
[2022-12-06 13:17] LABS: BUN/Creatinine Ratio 22.6; Calcium 9.5 mg/dL (8.5-10.1); Potassium 4.5 mmol/L (3.5-5.1)
[2022-12-06 13:24] LABS: Bilirubin, Total 0.3 mg/dL (0.2-1.0); Total Protein 7.6 g/dL (6.4-8.2)
[2022-12-06] MEDS ORDERED: IOHEXOL 350 MG/ML 100ML IJ ONE (17:07)
[2022-12-06] MEDS ORDERED: LEVO-28 PO (18:43)
[2022-12-06] MEDS ORDERED: AZITHROMYCIN 250 MG TAB PO ONE (18:45)
[2022-12-06] MEDS ORDERED: cefTRIAXone SOD 1,000 MG VL IM ONE (18:45)
[2022-12-06 21:22] VITALS: BP 144/52
== END 2022-12-06 21:24 | disposition home or self-care (01) ==
LOC: ER 12:27
DX: J18.9 Pneumonia, unspecified organism (principal); R79.1 Abnormal coagulation profile; I10 Essential (primary) hypertension; Z20.822 Contact with and (suspected) exposure to COVID-19; Z87.442 Personal history of urinary calculi
CPT/HCPCS: 36415; 71045; 71275; 80053; 83880; 84484; 85025; 85379; 87426; 87804; 96372; 99291; J0696; Q9967

== ENCOUNTER → 2023-04-17 | Outpatient (CLI) | payer OTHER, MEDICAID ==
[~2023-04-17] MED LIST changes: -AMLO-489 PO; +AMLO1TAB22 PO; +LEVO500T91 PO; +PHEN-922 PO; -PHEN200T16 PO
== END | disposition home or self-care (01) ==
LOC: RT 13:32
PROVIDERS: ATTEND Internal Medicine Pulmonary Disease
DX: R05.3 Chronic cough (principal); J44.9 Chronic obstructive pulmonary disease, unspecified
CPT/HCPCS: 94060; 94727; 94729

== ENCOUNTER 2024-06-04 13:51 | Emergency (ER) | payer OTHER, MEDICAID ==
[~2024-06-04] VITALS: Ht 160 cm; Wt 75.0 kg
[2024-06-04 14:39] VITALS: BP 147/51; PULSE 50; RESP 18; O2SAT 96
[2024-06-04 14:58] LABS: Basophils # (auto) 0.1 10 ^3/uL (0-0.2); Basophils % (auto) 1.2 % (0.0-2.0); Eosinophils # (auto) 0.2 10 ^3/uL (0-0.8); Eosinophils % (auto) 2.6 % (0.0-7.0); Hematocrit 40.1 % (41.0-53.0); Hemoglobin 13.6 g/dL (13.5-17.5); Lymphocytes # (auto) 1.4 10 ^3/uL (0.4-5.4); Lymphocytes % (auto) 20.7 % (10.0-50.0); Mean Corpuscular Hemoglobin 31.5 pg (28.0-32.0); Mean Corpuscular Volume 92.7 fL (80.0-100.0); Monocytes # (auto) 0.4 10 ^3/uL (0-1.3); Monocytes % (auto) 6.6 % (0.0-12.0); Neutrophils # (auto) 4.6 10 ^3/uL (1.6-8.6); Neutrophils % (auto) 68.9 % (37.0-80.0); Red Blood Cells 4.33 10^6/uL (4.5-5.90); Red Cell Distribution Width 15.6 % (11.8-14.3); White Blood Cell 6.7 10^3/uL (4.4-10.8)
[2024-06-04 15:10] LABS: Chloride 108 mmol/L (98-107); Potassium 4.5 mmol/L (3.5-5.1); Sodium 141 mmol/L (136-145)
[2024-06-04 15:11] LABS: Anion Gap 8 (5-15); Calcium 9.3 mg/dL (8.7-10.4); Carbon Dioxide 25 mmol/L (20-30)
[2024-06-04 15:16] LABS: BUN/Creatinine Ratio 22.1 (10.0-20.0); Blood Urea Nitrogen 19 mg/dL (9-23); Glucose 94 mg/dL (74-106)
== END 2024-06-04 19:26 | disposition admitted as inpatient to this hospital (09) ==
LOC: ER 13:51
DX: R00.1 Bradycardia, unspecified (principal); I10 Essential (primary) hypertension; Z87.442 Personal history of urinary calculi; Z98.890 Other specified postprocedural states; Z79.899 Other long term (current) drug therapy
CPT/HCPCS: 36415; 80048; 84484; 85025; 93005

== ENCOUNTER → 2024-10-15 | Outpatient (CLI) | payer OTHER, MEDICAID ==
--- NOTE | 2024-10-15 12:12 | DVH ---
Bilateral Chest Sonogram Date: 10/15/2024 11:35 AM Clinical history: Evaluate for pleural effusion Technique: Limited sonographic evaluation of the bilateral chest was performed to evaluate for pleur al effusion. Finding/Impression: No sonographic evidence for pleural effusion bilaterally. HS:Y
== END | disposition home or self-care (01) ==
LOC: XYW 11:09
PROVIDERS: ATTEND Internal Medicine Pulmonary Disease
DX: R91.1 Solitary pulmonary nodule (principal); J90 Pleural effusion, not elsewhere classified
CPT/HCPCS: 76604

== ENCOUNTER → 2024-11-09 | Outpatient (CLI) | payer OTHER, MEDICAID ==
[2024-11-09 14:57] LABS: Basophils # (auto) 0 10 ^3/uL (0-0.2); Basophils % (auto) 0.7 % (0.0-2.0); Eosinophils # (auto) 0.1 10 ^3/uL (0-0.8); Eosinophils % (auto) 1.2 % (0.0-7.0); Hemoglobin 13.4 g/dL (13.5-17.5); Lymphocytes # (auto) 1.3 10 ^3/uL (0.4-5.4); Lymphocytes % (auto) 22.1 % (10.0-50.0); Mean Corpuscular Hemoglobin 32.7 pg (28.0-32.0); Mean Corpuscular Hgb Conc. 34.4 g/dL (32.0-36.0); Monocytes # (auto) 0.4 10 ^3/uL (0-1.3); Monocytes % (auto) 6.5 % (0.0-12.0); Neutrophils # (auto) 4.2 10 ^3/uL (1.6-8.6); Neutrophils % (auto) 69.5 % (37.0-80.0); Platelet Count (auto) 240 10^3/uL (140-450); Red Cell Distribution Width 15.2 % (11.8-14.3)
[2024-11-09 15:06] LABS: Partial Thromboplastin Time 28.6 SEC (24.5-34.5); Prothrombin Time 10.6 sec (9.3-11.8)
[2024-11-09 15:33] LABS: Anion Gap 7 (5-15); Carbon Dioxide 22 mmol/L (20-31); Potassium 4.4 mmol/L (3.5-5.1); Sodium 139 mmol/L (136-145)
[2024-11-09 15:34] LABS: Calcium 9.4 mg/dL (8.7-10.4)
[2024-11-09 15:35] LABS: Chloride 110 mmol/L (98-107)
[2024-11-09 15:39] LABS: BUN/Creatinine Ratio 25.3 (10.0-20.0); Blood Urea Nitrogen 20 mg/dL (9-23); Glucose 96 mg/dL (74-106)
== END | disposition home or self-care (01) ==
LOC: LAB 13:58
PROVIDERS: ATTEND Internal Medicine Pulmonary Disease
DX: J44.9 Chronic obstructive pulmonary disease, unspecified (principal); J90 Pleural effusion, not elsewhere classified; J98.11 Atelectasis; Z51.81 Encounter for therapeutic drug level monitoring
CPT/HCPCS: 36415; 80048; 85025; 85610; 85730

== ENCOUNTER → 2024-11-24 | Outpatient (CLI) | payer OTHER, MEDICAID ==
[2024-11-24] VITALS (8 sets, daily range): BP systolic 114–166; BP diastolic 63–73; PULSE 39–54; RESP 14–19; O2SAT 92–97
[2024-11-24] MEDS: fentaNYL CITRATE 100 MCG/2 ML VL IV ONE (10:45)
[2024-11-24] MEDS: MIDAZOLAM HCL 2MG/2ML 2ml VIAL (1mg/ml) IV ONE (10:45)
--- NOTE | 2024-11-24 11:06 | DVH ---
CT CT GUIDANCE FOR NEEDLE PLACEME, HISTORY: PULMONARY NODULE PROCEDURE: Informed consent was obtained. The patient was placed prone on the CT scanner. A limited l ocalization CT scan of the lung was obtained. The skin overlying the lesion was prepped with chlorhex idine which was allowed to dry and draped in sterile fashion. Time out was performed. The skin and so ft tissues were infiltrated with Xylocaine, and IV sedation was administered. With intermittent CT gu idance, a 19 gauge Temno outer coaxial guiding needle was advanced into the left lung nodule. The nee dle position was confirmed with CT scan. 2 core biopsies were obtained using Temno inner 20 gauge bio psy needle. The specimens were sent in formalin to pathology for analysis. A visceral blood patch wa s applied as the needle was withdrawn the needle was withdrawn, and post procedural CT obtained throu gh the biopsy region. Next, a lower location on the left back was identified and cleaned with chlorhe xidine. A 19 gauge Temno outer coaxial guiding needle was advanced to the pleural calcification , but could not penetrate through. No immediate complication was identified was noted, and patient was tra nsport to recovery in stable condition without respiratory distress. DLP = 2421 mGy-cm. SEDATION: Dr. Sunshine Rao was personally responsible for the administration of moderate sedation during the procedure performed, including the use of an independent trained observer who had no other duties during the procedure. The drugs utilized were IV fentanyl and versed (see nursing log for details). The total time of supervision by the attending physician was approximately 45 minutes. FINDINGS: Limited CT scan demonstrates an approximately oft tissue nodule in the left posterior upper lobe and the biopsy needle within the margin of the lung mass. No significant post biopsy hemorrhage or pneumothorax is noted. Attempt for thoracentesis/ pleural mass biopsy however needle could not pe netrate through the rind of calcification. IMPRESSION/PLAN: CT guided lung biopsy. Pathology pending. Bedrest until cleared by IR following post-biopsy CXRs. Attempt for thoracentesis/ pleural mass biopsy however needle could not penetrate through the rind of calcification.
--- NOTE | 2024-11-24 12:40 | DVH ---
EXAM: XY CHEST PORTABLE Indication: POST LUNG BX Technique: Single frontal view of the chest was obtained Comparison: CHEST PORTABLE on DOS: 12/06/22, CXRP on DOS: 12/06/22, CHEST PORTABLE on DOS: 09/22/20 FINDINGS: Lines and Tubes: None Lungs: Multifocal left lung consolidative opacities. Pleura: No effusion. No pneumothorax. Cardiomediastinal contours: Unremarkable Bones: No acute osseous abnormality. IMPRESSION: Multifocal left lung consolidative opacity. No pneumothorax status post lung biopsy.
--- NOTE | 2024-11-24 12:40 | DVH ---
CHEST RADIOGRAPH Indication: POST LUNG BX Technique: Single frontal view of the chest was obtained COMPARISON: CHEST PORTABLE on DOS: 12/06/22, CXRP on DOS: 12/06/22, CHEST PORTABLE on DOS: 09/22/20 FINDINGS: Lines and Tubes: None Lungs: Left lung airspace disease. Pleura: No effusion. No pneumothorax. Cardiomediastinal contours: Unremarkable Bones: Unremarkable IMPRESSION: No pneumothorax post lung biopsy.
--- NOTE | 2024-11-24 15:51 | DVH ---
CT CT GUIDANCE FOR NEEDLE PLACEME, HISTORY: PULMONARY NODULE PROCEDURE: Informed consent was obtained. The patient was placed prone on the CT scanner. A limited l ocalization CT scan of the lung was obtained. The skin overlying the lesion was prepped with chlorhex idine which was allowed to dry and draped in sterile fashion. Time out was performed. The skin and so ft tissues were infiltrated with Xylocaine, and IV sedation was administered. With intermittent CT gu idance, a 19 gauge Temno outer coaxial guiding needle was advanced into the left lung nodule. The nee dle position was confirmed with CT scan. 2 core biopsies were obtained using Temno inner 20 gauge bio psy needle. The specimens were sent in formalin to pathology for analysis. A visceral blood patch was applied as the needle was withdrawn the needle was withdrawn, and post procedural CT obtained throug h the biopsy region. Next, a lower location on the left back was identified and cleaned with chlorhex idine. A 19 gauge Temno outer coaxial guiding needle was advanced to the pleural calcification , but could not penetrate through. No immediate complication was identified was noted, and patient was mandujano sport to recovery in stable condition without respiratory distress. DLP = 2421 mGy-cm. SEDATION: Dr. Sunshine Rao was personally responsible for the administration of moderate sedation during the procedure performed, including the use of an independent trained observer who had no other duties during the procedure. The drugs utilized were IV fentanyl and versed (see nursing log for details). The total time of supervision by the attending physician was approximately 45 minutes. FINDINGS: Limited CT scan demonstrates an approximately oft tissue nodule in the left posterior upper lobe and the biopsy needle within the margin of the lung mass. No significant post biopsy hemorrhage or pneumothorax is noted. Attempt for thoracentesis/ pleural mass biopsy however needle could not pe netrate through the rind of calcification. IMPRESSION/PLAN: CT guided lung biopsy. Pathology pending. Bedrest until cleared by IR following post-biopsy CXRs. Attempt for thoracentesis/ pleural mass biopsy however needle could not penetrate through the rind of calcification.
== END | disposition home or self-care (01) ==
LOC: CT 08:49
PROVIDERS: ATTEND Internal Medicine Pulmonary Disease
DX: R91.1 Solitary pulmonary nodule (principal); J85.0 Gangrene and necrosis of lung; J44.9 Chronic obstructive pulmonary disease, unspecified; J98.11 Atelectasis; G47.30 Sleep apnea, unspecified; Z79.82 Long term (current) use of aspirin; Z79.899 Other long term (current) drug therapy
CPT/HCPCS: 32408; 32555; 71045; 88305; J2250; J3010; 10005; 71250; 77012; 99152; 99153

== ENCOUNTER 2024-12-21 16:45 | Emergency (ER) | payer OTHER, MEDICAID ==
[~2024-12-21] VITALS: Ht 165.1 cm; Wt 66.5 kg
--- NOTE | 2024-12-21 17:08 | ED.PDOC ---
SOB-HPI HPI Comments HPI: Poor Historian. 74 y.o male presents to the ED for a chief complaint of SOB that started 2 weeks ago. Patient reports chest pain with deep inspiration. Patient denies any coughs, fever, or chills. Patient had a Chest X ray on 12/15/24 at [facility] with results stating: possible consolidation to left lung. Vitals BP: 174/80 HR: 68 Temp: 98 F SPO2: 95% RA RR:: 17 Past medical history: HTN and sleep apnea Past surgical history: Prostate, Partial colectomy, colostomy bag and 6 hernia repairs No allergies reported REVIEW OF SYSTEMS: CONSTITUTIONAL: Denies acute: fever, diaphoresis, chills, generalized weakness. HEAD: Denies acute: headache, photophobia Eyes: Denies acute: Double vision, vision loss, eye pain, eye discharge. EARS: Denies acute: tinnitus, hearing loss, ear discharge, ear pain, THROAT: Denies acute: sore throat, swelling, difficulty swallowing , pain with swallowing, change in voice. NECK: Denies acute: neck pain, neck swelling, stiff neck. HEART: Denies acute : palpitations, LUNGS: Denies acute: wheezing, cough, hemoptysis ABDOMEN: Denies acute: abdominal pain, Nausea, Vomiting, diarrhea, melena , hematemesis, hematochezia SKIN: Denies acute: rash, redness, lesions, itchiness. EXTREMITIES: Denies acute: calf pain, numbness, tingling, weakness, denies pain in extremity. Denies acute: Low back pain. Neuro: Denies acute: focal neurological deficit, motor or sensory focal neurological deficit, tremors, seizure like activity, confusion, dizziness, change in mental status, loss of bowel or bladder function, cauda equina like symptoms. : Denies acute: dysuria, hematuria, flank pain, increase in urinary frequency. PSYCH: Denies acute: hallucination, suicidal ideation, homicidal ideation. PHYSICAL EXAM: General: no acute distress, awake and alert. Head: normocephalic, atraumatic. Neck: supple, trachea is midline, no swelling. Throat: Normal phonation. Eyes:, no erythema, no purulent discharge, no proptosis, no icterus. Heart: regular rate, regular rhythm, no significant murmur appreciated. Lungs: no apparent respiratory distress, Able to speak in full sentences. No wheezing, no rhonchi, no crackles. No stridors Clear to auscultation bilaterally. Abdomen: non tender to palpation, non distended, soft, no guarding, no rebound, + bowel sounds. Noted colostomy pouch Neuro: Awake, Alert, oriented to name, self, situation, follows commands GCS=15. Speech is normal. Skin: no petechia, no purpura, no cyanosis, non-pale, not jaundice. Lower extremities: --no - Pitting edema no deformity, no focal swelling, no calf TTP. Makes eye contact. moves all four extremities. Face: no apparent facial droop. Ambulating in the ED independently. ED COURSE: Chief Complaint: Shortness of Breath Time Seen by MD: 16:55 Primary Care Provider: MICHAEL Wood notes: Allergies Information Source: Patient Mode of Arrival: Ambulatory Severity: Moderate Past Medical History PAST MEDICAL HISTORY: HTN, Kidney Stones Past Medical History (Other): sleep apnea Surgical History: Hernia Repair (6) Surgical History (Other): prostate, partial colectomy colostmy bag Family History Family History: Reviewed,noncontributory to illness Social History Smoker: Non-Smoker Alcohol: Denies ETOH Use Drugs: Denies Drug Use Lives In: Home Was a procedure done? Was a procedure done?: No Differential Dx Differential Diagnosis: COPD, Pneumonia, Respiratory Distress, URI, Other (DDx include ACS, unstable angina, anxiety, PE, pneumothroax, neoplasm, cardiac ischemia, COPD, asthma, CHF, pleural effusion, tobacco abuse, pneumonia, hypox ia, hypercapnia, anemia., infection/sepsis., pulmonary edema. Asthma, Cardiac tamponade, infection.) X-Ray, Labs, Meds, VS Vital Signs Date Time Temp Pulse Resp B/P (MAP) Pulse Ox O2 Delivery O2 Flow Rate FiO2 12/21/24 19:06 57 16 92 Room Air* 0 21 12/21/24 19:01 57 18 150/68 (95) 92 12/21/24 17:01 58 12/21/24 16:59 17 Room Air* 0 21 12/21/24 16:59 98.0 68 17 174/80 (111) 95 Lab Test 12/21/24 20:45 12/21/24 20:39 12/21/24 20:00 12/21/24 18:53 Range/Units Influenza Type A Antigen Negative Negative Influenza Type B Antigen Negative Negative SARS-CoV-2 Antigen (Rapid) Negative NEGATIVE Troponin I High Sensitivity 6 5 </=54 ng/L Blood Gas Specimen Type Arterial Blood Gas Sample Site Right radial Blood Gas Patient Temperature 37.0 Arterial Blood Date Drawn [id number] Arterial Blood pH 7.430 7.350-7.450 Arterial Blood Partial Pressure CO2 33.2 L 35.0-48.0 mmHg Arterial Blood Partial Pressure O2 72.9 L 83.0-108.0 mmHg Arterial Blood HCO3 21.5 21.0-28.0 mmol/L Arterial Blood Oxygen Saturation 93.7 L 94.0-98.0 % Arterial Blood Base Excess -2.0 -2.0-3.0 mmol/L Arterial Blood Oxyhemoglobin 92.6 L 94.0-98.0 % Arterial Blood Carboxyhemoglobin 0.7 0.5-1.5 % Arterial Blood Methemoglobin 0.5 0.0-1.5 % Logan Test Modified Blood Gas Total Hemoglobin 13.60 13.5-17.5 g/dL Blood Gas Modality Room air FiO2 % 21.0 Test 12/21/24 17:04 Range/Units White Blood Count 7.5 4.4-10.8 10^3/uL Red Blood Count 4.39 L 4.5-5.90 10^6/uL Hemoglobin 14.1 13.5-17.5 g/dL Hematocrit 42.4 41.0-53.0 % Mean Corpuscular Volume 96.5 80.0-100.0 fL Mean Corpuscular Hemoglobin 32.0 28.0-32.0 pg Mean Corpuscular Hemoglobin Concent 33.2 32.0-36.0 g/dL Red Cell Distribution Width 14.9 H 11.8-14.3 % Platelet Count 237 140-450 10^3/uL Mean Platelet Volume 8.7 6.9-10.8 fL Neutrophils (%) (Auto) 68.4 37.0-80.0 % Lymphocytes (%) (Auto) 22.1 10.0-50.0 % Monocytes (%) (Auto) 6.6 0.0-12.0 % Eosinophils (%) (Auto) 2.0 0.0-7.0 % Basophils (%) (Auto) 0.9 0.0-2.0 % Neutrophils # (Auto) 5.1 1.6-8.6 10 ^3/uL Lymphocytes # (Auto) 1.7 0.4-5.4 10 ^3/uL Monocytes # (Auto) 0.5 0-1.3 10 ^3/uL Eosinophils # (Auto) 0.2 0-0.8 10 ^3/uL Basophils # (Auto) 0.1 0-0.2 10 ^3/uL Nucleated Red Blood Cells 0.2 % Sodium Level 141 136-145 mmol/L Potassium Level 4.3 3.5-5.1 mmol/L Chloride Level 108 H 98-107 mmol/L Carbon Dioxide Level 23 20-31 mmol/L Anion Gap 10 5-15 Blood Urea Nitrogen 26 H 9-23 mg/dL Creatinine 0.83 0.700-1.30 mg/dL Glomerular Filtration Rate Calc 92 >90 mL/min BUN/Creatinine Ratio 31.3 H 10.0-20.0 Serum Glucose 117 H 74-106 mg/dL Calcium Level 9.8 8.7-10.4 mg/dL Total Bilirubin 0.5 0.2-1.0 mg/dL Aspartate Amino Transferase (AST) 11 L 13-40 U/L Alanine Aminotransferase (ALT) 17 7-40 U/L Alkaline Phosphatase 119 H 46-116 U/L Troponin I High Sensitivity 6 </=54 ng/L B-Type Natriuretic Peptide 123.57 0-100 pg/mL Total Protein 6.5 5.7-8.2 g/dL Albumin 4.5 3.2-4.8 g/dL Current Medications Medications (Trade) Dose Ordered Sig/Ward Route Start Time Stop Time Status Last Admin Piperacillin Sod/ Tazobactam Sod 100 ml @ 100 mls/hr ONCE ONCE IV 12/21/24 17:00 12/21/24 17:59 DC 12/21/24 19:05 Time of 1ST Reevaluation: 17:01 Reevaluation 1ST: Unchanged Time of 2ND Reevaluation: 19:48 (The case was discussed with the admitting team (HPI, physical exam, labs and diagnostic tests that were available at the time of disposition, ED course, treatment plan) on the phone. They will assume care of this patient from this point forward. Dr. Jarrell.) Patient Education/Counseling: Diagnosis, Treatment Family Education/Counseling: No Family Present Comments Patient presented with the above HPI.---respiratory---workup was initiated. patient was found with the above mentioned diagnosis. the following medications were ordered: please refer to order lists of meds and tests obtained by myself Dr. Ken. Patient ED course and VS have been stabilized. Patient has been reassessed in the ED and remained in a stable condition. Patient/family voices understanding and is agreeable with plan. Patient has been observed in the ED adequate length of time to insure improvement/stability. Escalation of care considered: Consideration of escalation to observation or admission Patient was ADMITTED to the medicine team for further evaluation and treatment of their presentation. Please see Dr. Jarrell's notes recommendations and disposition. All the reports of any imaging studies that were ordered by myself were reviewed by myself. Departure 1 Departure Time of Disposition: 18:04 Impression: Primary Impression: SOB (shortness of breath) Additional Impressions: Pneumonia Mesenteric lymphadenopathy Lung mass Disposition: ADMITTED INPATIENT Admit to: Tele Condition: Guarded Additional Instructions: [place] [id number] Ph: [phone] DIAGNOSTIC IMAGING Diagnostic Imaging Report : [id number] Signed PATIENT: MEMO MEJIA ACCT: [id number] UNIT: [id number] : 1950 LOC: ER ROOM / BED: / AGE / SEX: 74 / M ADM STATUS: REG ER SERVICE [id number] ORDERING PHYSICIAN: SANDY KEN DO PROCEDURE(s): CTACH - CT ANGIO CHEST CONTRAST REASON: cp sob ORDER NUMBER(s): [id number], ACCESSION NUMBER(s): [id number] EXAM: CT Angiography Chest With Intravenous Contrast CLINICAL INDICATION: cp sob TECHNIQUE: Axial computed tomographic angiography images of the chest with intravenous contrast. This CT exam was performed using one or more of the following dose reduction techniques: automated exposure control, adjustment of the mA and/or kV according to patient size, and/or use of iterative reconstruction technique. MIP reconstructed images were created and reviewed. CONTRAST: COMPARISON: CT ANGIO CHEST CONTRAST on DOS: 12/06/22, CTACH on DOS: 12/06/22 FINDINGS: LIMITATIONS: Suboptimal opacification of the pulmonary arteries. PULMONARY ARTERIES: No pulmonary embolism is identified. Some of the distal p ulmonary arteries cannot be evaluated due to suboptimal opacification. AORTA: No acute findings. No thoracic aortic aneurysm. LUNGS AND PLEURAL SPACES: Stable left pleural collection. Subtle ill-defined ground-glass attenuation of both lungs. No mass. No consolidation. No significant effusion. No pneumothorax. HEART: Unremarkable. No cardiomegaly. No significant pericardial effusion. No evidence of RV dysfunction. MEDIASTINUM: Scattered mediastinal lymph nodes some of which are upper limits of normal in size and are most likely reactive lymph nodes. BONES/JOINTS: No acute fracture. No dislocation. SOFT TISSUES: Unremarkable. LYMPH NODES: See above. OTHER FINDINGS: . . . IMPRESSION: 1. No pulmonary embolism is identified. Some of the distal pulmonary arteries cannot be evaluated due to suboptimal opacification. 2. Scattered mediastinal lymph nodes some of which are upper limits of normal in size and are most likely reactive lymph nodes. ATED BY: AURE BROWN MD DICTATED DATE/TIME: 12/21/241916 SIGNED BY: AURE BROWN MD SIGNED DATE/TIME: 12/21/241916 CC: Discharged With: Self Critical Care Note Critical Care Time?: No Heart Score Heart Score: Heart Score Response (Comments) Value History Moderate Suspicious 1 EKG Normal 0 Age >65 2 Risk Factors 1 or 2 risk factors 1 Troponin Normal limit 0 Total 4 I personally scribed for SANDY KEN DO ([email or web address]) on 12/21/24 at 17:08. Electronically submitted by Muna Braswell ([email or web address]). I personally scribed for SANDY KEN DO ([email or web address]) on 12/21/24 at 18:28. Electronically submitted by Muna Braswell ([email or web address]). SANDY KEN DO Dec 21, 2024 17:08
[2024-12-21 17:27] LABS: Basophils # (auto) 0.1 10 ^3/uL (0-0.2); Basophils % (auto) 0.9 % (0.0-2.0); Eosinophils # (auto) 0.2 10 ^3/uL (0-0.8); Hematocrit 42.4 % (41.0-53.0); Hemoglobin 14.1 g/dL (13.5-17.5); Lymphocytes # (auto) 1.7 10 ^3/uL (0.4-5.4); Lymphocytes % (auto) 22.1 % (10.0-50.0); Mean Corpuscular Hgb Conc. 33.2 g/dL (32.0-36.0); Mean Corpuscular Volume 96.5 fL (80.0-100.0); Monocytes # (auto) 0.5 10 ^3/uL (0-1.3); Monocytes % (auto) 6.6 % (0.0-12.0); Neutrophils # (auto) 5.1 10 ^3/uL (1.6-8.6); Neutrophils % (auto) 68.4 % (37.0-80.0); Nucleated Red Blood Cells % 0.2 %; Platelet Count (auto) 237 10^3/uL (140-450); Red Blood Cells 4.39 10^6/uL (4.5-5.90); Red Cell Distribution Width 14.9 % (11.8-14.3); White Blood Cell 7.5 10^3/uL (4.4-10.8)
[2024-12-21 17:44] LABS: Alanine Aminotransferase 17 U/L (7-40); Albumin 4.5 g/dL (3.2-4.8); Anion Gap 10 (5-15); BUN/Creatinine Ratio 31.3 (10.0-20.0); Calcium 9.8 mg/dL (8.7-10.4); Carbon Dioxide 23 mmol/L (20-31); Potassium 4.3 mmol/L (3.5-5.1); Sodium 141 mmol/L (136-145)
[2024-12-21 17:45] LABS: Alkaline Phosphatase 119 U/L (46-116); Aspartate Aminotransferase 11 U/L (13-40); Bilirubin, Total 0.5 mg/dL (0.2-1.0); Blood Urea Nitrogen 26 mg/dL (9-23); Chloride 108 mmol/L (98-107); Glucose 117 mg/dL (74-106); Total Protein 6.5 g/dL (5.7-8.2)
[2024-12-21] MEDS ORDERED: IOHEXOL 350 MG/ML 100ML IJ ONE (18:38)
[2024-12-21] MEDS: PIPERACILLIN-TAZOB 3.375GM 100 ML IV ONE (19:05)
[2024-12-21 19:06] VITALS: PULSE 57; RESP 16; O2SAT 92
--- NOTE | 2024-12-21 19:20 | DVH ---
EXAM: CT Angiography Chest With Intravenous Contrast CLINICAL INDICATION: cp sob TECHNIQUE: Axial computed tomographic angiography images of the chest with intravenous contrast. Th is CT exam was performed using one or more of the following dose reduction techniques: automated exp osure control, adjustment of the mA and/or kV according to patient size, and/or use of iterative patricia nstruction technique. MIP reconstructed images were created and reviewed. CONTRAST: COMPARISON: CT ANGIO CHEST CONTRAST on DOS: 12/06/22, CTACH on DOS: 12/06/22 FINDINGS: LIMITATIONS: Suboptimal opacification of the pulmonary arteries. PULMONARY ARTERIES: No pulmonary embolism is identified. Some of the distal pulmonary arteries can not be evaluated due to suboptimal opacification. AORTA: No acute findings. No thoracic aortic aneurysm. LUNGS AND PLEURAL SPACES: Stable left pleural collection. Subtle ill-defined ground-glass attenuat ion of both lungs. No mass. No consolidation. No significant effusion. No pneumothorax. HEART: Unremarkable. No cardiomegaly. No significant pericardial effusion. No evidence of RV dys function. MEDIASTINUM: Scattered mediastinal lymph nodes some of which are upper limits of normal in size and are most likely reactive lymph nodes. BONES/JOINTS: No acute fracture. No dislocation. SOFT TISSUES: Unremarkable. LYMPH NODES: See above. OTHER FINDINGS: . . . IMPRESSION: 1. No pulmonary embolism is identified. Some of the distal pulmonary arteries cannot be evaluated d ue to suboptimal opacification. 2. Scattered mediastinal lymph nodes some of which are upper limits of normal in size and are most l ikely reactive lymph nodes.
--- NOTE | 2024-12-21 20:24 | DVH ---
CHEST RADIOGRAPH Indication: sob Technique: Single frontal view of the chest was obtained Comparison: XY CHEST PORTABLE on DOS: 11/24/24, XY CHEST PORTABLE on DOS: 11/24/24, CHEST PORTABLE on D OS: 12/06/22 FINDINGS: Lines and Tubes: None Lungs: Calcified pleural-based mass left upper lung field measuring approximately 13.4 cm in length Pleura: No effusion. No pneumothorax. Cardiomediastinal contours: Unremarkable Bones: No acute osseous abnormality. IMPRESSION: 1. Calcified left pleural-based mass unchanged from 11/24/2024.
[2024-12-21 21:53] LABS: COVID19 ANTIGEN SOFIA FIA NEGATIVE (NEGATIVE); Rapid Influenza A Negative (Negative); Rapid Influenza B Negative (Negative)
--- NOTE | 2024-12-21 23:26 | DVHDS2 ---
Physician Discharge Progress N Final Diagnosis: mediastinal lymph nodes left lowel lung pleural collection Operations or Procedures: Operations or Procedures none Other Interventions Other Interventions CT angiogram,CXR, lab results Consultations: Consultations none Commentary: Commentary 74 y.o. male was sent to the ER by PMD due to abnormal CXR that he had on 12/15/24 at [facility]. Patient stated that he has had SOB for over a month. As per [facility] records, patient has CT guided lung Bx on November. Results of the Bx are not available. Patient had unremarkable lab results and stable VS in the ER. CTA today showed: "PULMONARY ARTERIES: No pulmonary embolism is identified. Some of the distal pulmonary arteries cannot be evaluated due to suboptimal opacification. AORTA: No acute findings. No thoracic aortic aneurysm. LUNGS AND PLEURAL SPACES: Stable left pleural collection. Subtle ill-defined ground-glass attenuation of both lungs. No mass. No consolidation. No significant effusion. No pneumothorax. HEART: Unremarkable. No cardiomegaly. No significant pericardial effusion. No evidence of RV dysfunction. MEDIASTINUM: Scattered mediastinal lymph nodes some of which are upper limits of normal in size and are most likely reactive lymph nodes. BONES/JOINTS: No acute fracture. No dislocation. SOFT TISSUES: Unremarkable. LYMPH NODES: See above." Patient will be scheduled with an outpatient officer lieutenant to f/u the results of the Bx and the latest CTA. Condition on Discharge: Stable Disposition: Home Discharge Instructions: Diet: Regular Activity: No Restrictions, As Tolerated Follow Up/Referral: [employer] [facility] Medications: Continue home medications Follow Up Care: Discharge Statement: "Patient was advised to return to the ER or call 911 if any headaches, dizziness, shortness of breath, chest pain, abdominal pain, bleeding, fevers, or worsening of medical condition. Patient was counseled about treatment plan, medications, possible side effects, patientverbalized understanding. All questions were answered to the best of my ability. This discharge took greater then 30 minutes in planning, reviewing documentation, counseling the patient, and discussing with other team members." OPAL SPRINGER MD Dec 21, 2024 23:26
[2024-12-22] MEDS: amLODIPine BESYLATE 5 MG TAB PO ONE (02:42)
[2024-12-22] MEDS: ENALAPRILAT 1.25 MG/ML-1ML VIAL IV ONE (03:45)
[2024-12-22] MEDS: cloNIDine HCL 0.1 MG TAB PO ONE (04:08)
[2024-12-22 04:58] VITALS: BP 165/67; PULSE 47; RESP 16; O2SAT 96
--- NOTE | 2024-12-22 09:59 | ECG ---
[facility] Test Date: 2024-12-21 Test Time: 17:01:21 Pat Name: MEMO RAMIREZ Department: ED Room: Gender: M [employer] Operator: : [id number] Requested By: SANDY KEN Order Number: [id number] Reading MD: Luis Saenz Measurements Intervals [place] Rate: 58 P: 38 FL: 168 QRS: 43 QRSD: 90 T: 52 QT: 383 QTc: 377 Interpretive Statements Sinus rhythm Probable left atrial enlargement Minimal ST elevation, anterior leads Electronically Signed On 12-24-2024 21:57:34 PST by Luis Saenz Please click the below link to view image of tracing.
== END 2024-12-22 05:00 | disposition home or self-care (01) ==
LOC: ER 16:45
DX: J18.9 Pneumonia, unspecified organism (principal); R59.0 Localized enlarged lymph nodes; R91.8 Other nonspecific abnormal finding of lung field; I10 Essential (primary) hypertension; Z98.890 Other specified postprocedural states; Z20.822 Contact with and (suspected) exposure to COVID-19
CPT/HCPCS: 36415; 36600; 71045; 71275; 80053; 82805; 83880; 84484; 85025; 87426; 87804; 93005; 96365; 99285; J2543; Q9967